=== PATIENT | male | born 1985 | race Caucasian/White ===

== ENCOUNTER 2016-06-30 16:13 | Observation (INO) | payer OTHER ==
[~2016-06-30] VITALS: Ht 180.3 cm; Wt 123.8 kg
--- NOTE | ~2016-06-30 | DS ---
PATIENT'S NAME: DEEP AMATO [facility] AGE: 31 Y [address] ROOM: [address] [place], [place] [address] LOCATION: GICU ADMIT DATE: 06/30/2016 Discharge Summary DISCHARGE DATE: 07/01/2016 FAMILY PHYSICIAN: Melinda Irving MD ATTENDING PHYSICIAN: Jaime Ozuna V PRINCIPAL DIAGNOSIS: Priapism. SECONDARY DIAGNOSES: 1. Acute encephalopathy secondary to medication. 2. Morbid obesity. 3. Depression. 4. Obstructive sleep apnea. 5. Hypercholesterolemia. HOSPITAL COURSE: A 31-year-old gentleman with a past medical history of depression and was started on trazodone for insomnia, started experiencing priapism for a prolonged period of time, and he presented to the emergency department. He drove from [place] to [facility], and on way, he took multiple tablets of Ativan of unknown dosages. On arrival to the hospital, he was very drowsy and altered mental status. His initial lab work as well as blood gases looked okay. Because of his combativeness and inability to maintain airway, it was contemplated to intubate him, but later his mental status improved dramatically overnight. He was admitted in the ICU for overnight observation. His priapism as well as pain resolved on the day of discharge. He was restarted on all of his home medications, and was advised not to take trazodone and seek medical attention immediately if he again get erections for more than 2 hours. DISCHARGE MEDICATIONS: Include, 1. Lipitor 10 mg p.o. every day. 2. Bupropion XL 300 mg p.o. every day. 3. Cyclobenzaprine 10 mg p.o. every 8 hours p.r.n. 4. Lunesta 2 mg p.o. every night at bedtime. 5. Ondansetron 8 mg p.o. every 8 hours as needed for nausea and vomiting. 6. Pantoprazole 40 mg p.o. every day. 7. Tramadol 50 mg p.o. every 6 hours p.r.n. for pain. DISCHARGE INSTRUCTIONS: Go to the emergency department if erection lasts for more than 4 hours. Activity as tolerated. Diet, regular diet. Hemodynamics as well as lab work on discharge were stable. PATIENT'S NAME: DEEP AMATO [facility] AGE: 31 Y [address] ROOM: [place] [address] LOCATION: [facility] ADMIT DATE: 06/30/2016 Discharge Summary DISCHARGE DATE: 07/01/2016 FAMILY PHYSICIAN: Melinda Irving MD ATTENDING PHYSICIAN: Jaime Ozuna MD NATIVIDAD/marbin /[id number] d: 07/02/16 0339 t: 07/03/16 1213, DISCHARGE SUMMARY
--- NOTE | ~2016-06-30 | ER ---
[facility] AGE[facility] 31 Y [address] ROOM: [place] [address] LOCATION: GICU ADMIT DATE: 06/30/2016 ER/Outpatient Report DISCHARGE DATE: 07/01/2016 FAMILY PHYSICIAN: Melinda Irving MD ATTENDING PHYSICIAN: Jaime Ozuna V TIME OF ARRIVAL: 1613 hours. TIME SEEN: 1613 hours. IDENTIFICATION: A 31-year-old male. CHIEF COMPLAINT: Priapism and overdose. 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 On arrival, he was combative and minimally responsive. According to his , to deal with the pain he had taken Flexeril 10 mg approximately 12 tablet, she is not sure, tramadol 50 mg an unknown amount, Ativan an unknown amount, and alcohol. He apparently had priapism yesterday and saw his primary care physician and his trazodone was discontinued. It got better but then again reoccurred, so he called and taken all these pain medications, but did not tell us that over the phone. Since that time, his priapism has relieved itself. He, however, has three or four lidocaine patches over his penis. He is not responsive to answer any questions. His history was obtained from his . PAST MEDICAL HISTORY: ALLERGIES: NO KNOWN DRUG ALLERGIES. CURRENT MEDICATIONS: 1. Ondansetron 8 mg p.r.n. 2. Pantoprazole 40 mg daily. 3. Eszopiclone which is Lunesta 2 mg at bedtime p.r.n. 4. Cyclobenzaprine 10 mg p.r.n. 5. Atorvastatin 10 mg. 6. Bupropion XL 150 mg. 7. Tramadol 50 mg. PATIENT'S NAME: [facility] AGE: 31 Y [address] ROOM: [place] [address] LOCATION: GICU ADMIT DATE: 06/30/2016 ER/Outpatient Report DISCHARGE DATE: 07/01/2016 FAMILY PHYSICIAN: Melinda Irving MD ATTENDING PHYSICIAN: Jaime Ozuna V 8. Ativan, unknown dose. MEDICAL PROBLEMS: Sleep apnea on CPAP, depression, migraine headaches, hyperlipidemia. PRIOR SURGERIES: Gastric sleeve in November, he has lost 100 pounds since that time according to his ; T and A; vocal cord nodules in that surgery. SOCIAL HISTORY: The patient lives in [place]. He is . 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 Health: Tobacco use, his said he does not smoke, but she did find cigarettes in his car the other day. Alcohol use, every night and more on the weekends. He did drink this morning, unknown quantity. Suicidal ideation none known. She states that he was not trying to harm himself, he was just trying to get rid of the pain, but I am not able to get an answer from him on that. REVIEW OF SYSTEMS: All systems reviewed per the , not per the patient, unable to obtain from the patient. Negative other than what is noted in the HPI. FAMILY HISTORY: No pertinent family history identified. PHYSICAL EXAMINATION: VITAL SIGNS: Weight 124.7 kg, blood pressure 138/58, pulse 100, respirations 12, temp 97.4, sats 98% on room air. GENERAL: A 31-year-old male who is initially somewhat combative, but will not open his eyes to command and will not answer questions. Initial [place] coma score from nv was eight. He did have incomprehensible sounds. He localized pain but did not open his eyes. HEENT: Head: Normocephalic, atraumatic. Ears: TMs translucent, both ears. Eyes: Pupils equal and reactive to light and accommodation. Extraocular movements intact. LUNGS: Clear to auscultation. No rhonchi, wheezes, or rales. HEART: Regular rate and rhythm. ABDOMEN: Protuberant. Bowel sounds present. Soft, nondistended, nontender. SKIN: [place], warm, and dry. NEUROLOGIC: The patient's [place] Coma Score is eight. He is moving all extremities, but he does not follow any commands and he moans but is not verbal. EXTREMITIES: No edema. : No evidence of priapism at that time. All of the lidocaine patch is removed from his penis and a Suggs catheter was placed. The patient for PATIENT'S NAME: DEEP AMATO [facility] AGE: 31 Y [address] ROOM: [address] [place], [place] [address] LOCATION: GICU ADMIT DATE: 06/30/2016 ER/Outpatient Report DISCHARGE DATE: 07/01/2016 FAMILY PHYSICIAN: Melinda Irving MD ATTENDING PHYSICIAN: aJime Ozuna V comfort had been placed by paramedics on 1 L of O2 per nasal cannula. Suggs catheter was placed and IV was initiated 1 L of normal saline was infused, a banana bag was ordered, and his labs were obtained. Poison Control was contacted. At this point, recommended supportive management and recommendations were faxed from Poison Control. LABORATORY DATA: EKG sinus tachycardia 100 beats per minute. No acute ST elevation or depression. QRS 94 millisecond, QTc corrected 427 millisecond, lactate elevated at 2.6. Cath UA negative. Hemoglobin 15.4, hematocrit 45.6, platelets 180, white count 8.8 with a normal differential. Urine drug screen negative. PH 7.36, procalcitonin less than 0.05. Sodium 146, potassium 3.7, chloride 109, CO2 of 25, BUN 8, creatinine 1.0. Blood sugar 78, repeat Accu- Chek 75. The patient was given an amp of D50 along with his banana bag. Alcohol 0.198. Acetaminophen less than 2. Salicylate less than 2.8. These were initially ordered, but the patient was combative, so we did cancel those ABGs and obtained venous lactate and a venous pH. Venous pH was 7.36, CO2 was 25, and lactate was 2.6. ABGs then were ordered by Dr. Ozuna as he was here in the emergency room. PH 7.40, pCO2 of 41, PO2 of 138, sats 99%. His end- tidal CO2 remained 42-48, they did increase to 48, but he would respond to a sternal rub and his kept reminding us that he does have sleep apnea. Sats always remained 99% or greater. At this time, the decision was made as he was maintaining his own airway to not intubate the patient, but if he change that all, intubation would occur and this discussion did happen with the both by myself and with Dr. Ozuna. IMPRESSION AND PLAN: 1. Overdose, polysubstance, unknown amount and definite time along with alcohol intake. It is greater than 1.5 hours and I would not use activated charcoal at this time as well as he is not responsive. 2. Depression and anxiety. 3. Priapism. No acute priapism at this time. 4. Obesity. 5. Obstructive sleep apnea. PLAN: Admission to ICU per Dr. Ozuna. The patient's arrival time was 1613 hours and 50 minutes of critical care was provided with this patient. REID SANCHEZ MD PATIENT'S NAME: DEEP AMATO [facility] AGE: 31 Y [address] ROOM: [place] [address] LOCATION: [facility] ADMIT DATE: 06/30/2016 ER/Outpatient Report DISCHARGE DATE: 07/01/2016 FAMILY PHYSICIAN: Melinda Irving MD ATTENDING PHYSICIAN: Jaime Ozuna V CAR/umml /[id number] d: 07/01/16 1356 t: 07/03/16 1424, OUTPATIENT REPORT
--- NOTE | ~2016-06-30 | HP ---
PAT[facility] NAME: [facility] AGE: 31 Y [address] ROOM: [place] [address] LOCATION: [facility] ADMIT DATE: 06/30/2016 History & Physical DISCHARGE DATE: FAMILY PHYSICIAN: Melinda Irving MD ATTENDING PHYSICIAN: KRISTIAN FITZPATRICK V DATE OF SERVICE: CHIEF COMPLAINT: Overdose. HISTORY OF PRESENT ILLNESS: This is a 31-year-old male. The history is provided by his . The patient had been having difficulties with priapism yesterday. He discussed this with his PMD and was taken off trazodone and put on Ativan, though the specifics of that prescription are unclear. This morning, the patient had intermittent priapism again and was advised to come to the ER. Before even coming to the ER, his priapism resolved, but his pain remained. En route to the ER, the patient took multiple medications for the pain, as per his . These included Ultram, Flexeril, and possibly some others. She is not sure if he took any of the Ativan. She brought a bag of his medicines, and I do not see any bottles of Ativan. There are bottles of eszopiclone, ondansetron, atorvastatin, bupropion, and tramadol in there. He also has been drinking, and upon arrival here, his blood alcohol is 0.198. Initially, in the ER, the patient was quite combative, but subsequently his mental status has deteriorated. At this point, he is quite obtunded, though seems to be maintaining his airway. He is only responding to the most noxious stimuli, but not really opening his eyes. REVIEW OF SYSTEMS: All systems have been reviewed with the and are negative aside from pertinent positives mentioned above. PAST MEDICAL HISTORY: 1. Depression. 2. Morbid obesity. 3. Status post gastric sleeve, with profound weight loss in the last 8 months; about 100 pounds. 4. Obstructive sleep apnea, on BiPAP. 5. Hypercholesterolemia. CURRENT MEDICATIONS: 1. Zofran. 2. Pantoprazole. PATIENT'S NAME: [facility] AGE: 31 Y [address] ROOM: [place] [address] LOCATION: [facility] ADMIT DATE: 06/30/2016 History & Physical DISCHARGE DATE: FAMILY PHYSICIAN: Melinda Irving MD ATTENDING PHYSICIAN: KRISTIAN FITZPATRICK V 3. Eszopiclone (Lunesta). 4. Cyclobenzaprine. 5. Atorvastatin. 6. Bupropion XL. 7. Tramadol. 8. Ativan. SOCIAL HISTORY: Significant for daily alcohol use. His reports approximately 2 to 3 large [employer]isted [employer] cans, more on weekends and when he is not on-call. She denies any drug use, but apparently she has been finding cigarettes in his car. FAMILY HISTORY: Reviewed and is noncontributory. PHYSICAL EXAMINATION: VITAL SIGNS: Blood pressure 120s over 60s, heart rate 109, saturating 97% on minimal amount of nasal cannula, afebrile. GENERAL APPEARANCE: A morbidly obese, young male. Obtunded. [place] Coma Scale is 7. EYES: Pupils are equal and reactive to light. LYMPHATIC: No cervical lymphadenopathy. ENDOCRINE: No thyromegaly. LUNGS: Clear to auscultation, with poor inspiratory effort. HEART: Rate is tachycardic and regular with no appreciable murmurs, gallops, or rubs. GASTROINTESTINAL: Abdomen is soft, nontender, and nondistended. GENITOURINARY: No costovertebral angle tenderness. VASCULAR: 2+ pedal pulses. MUSCULOSKELETAL: No muscle or joint abnormalities. SKIN: Warm and dry. PSYCHIATRIC: Cannot be conducted. LABORATORY DATA: Studies performed in the ER are significant for Accu-Chek of 72. Venous pH 7.36. Lactate is 2.6. Sodium 146. Remainder is unremarkable. Alcohol level is 0.198. Urinalysis is negative. Urine tox is negative. ASSESSMENT AND PLAN: This is a 31-year-old male who is admitted with: 1. Acute polysubstance overdose. At this point, we will check the patient's arterial blood gas as there has been a deterioration in his cognitive function. Based on the results of the ABG, we will consider intubation. If not, the patient will be admitted to the intensive care unit PATIENT'S NAME: DEEP AMATO [facility] AGE: 31 Y [address] ROOM: [address] [address] LOCATION: GICU ADMIT DATE: 06/30/2016 History & Physical DISCHARGE DATE: FAMILY PHYSICIAN: Melinda Irving MD ATTENDING PHYSICIAN: KRISTIAN FITZPATRICK V regardless. We will monitor his oxygenation, ventilation, as well as airway. We will have a low threshold for intubation. 2. Polysubstance ingestion. We will monitor his rhythm and electrolytes. At this point, it is probably too late for activated charcoal. 3. Depression and anxiety. We will hold off on his psychoactives. 4. Priapism. If this recurs, we will get a urology consultation. We will discontinue his trazodone. 5. Morbid obesity noted. 6. Obstructive sleep apnea. We will put the patient on CPAP. Time dedicated to the patient's encounter is 35 minutes. MD WELSHK/umml /[id number] D: [id number] T: [id number] HISTORY & PHYSICAL
[2016-06-30 16:34] LABS: BILIRUBIN URINE NEGATIVE (NEGATIVE); BLOOD URINE NEGATIVE /UL (NEGATIVE); GLUCOSE URINE NEGATIVE (NEGATIVE); KETONE URINE NEGATIVE (NEGATIVE); LEUKOCYTES URINE NEGATIVE /UL (NEGATIVE); NITRITE URINE NEGATIVE (NEGATIVE); PH URINE 6.5 (4.0-8.0); PROTEIN URINE NEGATIVE (NEGATIVE); SPEC GRAVITY URINE 1.005 (1.003-1.035); UROBILINOGEN URINE NORMAL (NORMAL)
[2016-06-30 16:34] LABS: BASOPHIL # 0.1 K/uL (0.0-0.2); BASOPHIL % 0.6 %; EOSINOPHIL # 0.2 K/uL (0.0-0.5); EOSINOPHIL % 1.9 %; HEMATOCRIT 45.6 % (37.0-53.0); HEMOGLOBIN 15.4 g/dL (12.0-17.0); IMMATURE GRANULOCYTE % 0.5 %; LYMPHOCYTE # 2.6 K/uL (0.8-4.0); LYMPHOCYTE % 29.6 %; MCH 29.9 pg (27.0-34.0); MCHC 33.8 gm/dL (32.0-36.5); MCV 88.5 fl (83.0-98.0); MONOCYTE # 0.6 K/uL (0.0-1.0); MONOCYTE % 6.3 %; MPV 9.2 fl (9.4-12.4); NEUTROPHIL # (ANC) 5.4 K/uL (1.4-9.0); NEUTROPHIL % 61.1 %; NRBC % 0 /100WBC (0-0.00); PLATELET COUNT 180 K/uL (150-450); RBC 5.15 M/uL (4.00-6.00); RDW-CV 13.9 % (11.9-14.6); WBC 8.8 K/uL (4.0-11.0)
[2016-06-30 16:35] LABS: COLOR URINE YELLOW (YELLOW); TURBIDITY URINE CLEAR (CLEAR)
[2016-06-30 16:51] LABS: AMPHETAMINE NEGATIVE (NEGATIVE); BARBITURATE NEGATIVE (NEGATIVE); COCAINE NEGATIVE (NEGATIVE); OPIATES NEGATIVE (NEGATIVE)
[2016-06-30 16:54] LABS: ALBUMIN 4.1 gm/dL (3.5-5.0); ALK PHOS 92 IU/L (33-138); ALT 40 IU/L (12-78); AST 33 IU/L (10-40); BLOOD UREA NITROGEN 8 mg/dL (6-24); CALCIUM 8.7 mg/dL (8.5-10.5); CHLORIDE 109 mMol/L (96-110); CO2 25 mMol/L (22-32); ESTIMATED GFR (MDRD EQUATION) > 60; POTASSIUM 3.7 mMol/L (3.7-5.1); TOTAL BILIRUBIN 0.4 mg/dL (0.0-1.5); TOTAL PROTEIN 8.6 g/dL (6.0-8.4)
[2016-06-30 16:56] LABS: ANION GAP 15.7 (10.0-19.0); SODIUM 146 mMol/L (135-145)
[2016-06-30 17:48] LABS: BICARBONATE 25.1 mmol/L (18.0-23.0); PCO2 41 mmHg (35-45); PO2 138 mmHg (80-90)
[2016-06-30] MEDS ORDERED: FLEXERIL10 MG PO (19:13)
[2016-06-30] MEDS ORDERED: WELLBUTRIN XL150 M1 PO (19:14)
[2016-06-30] MEDS ORDERED: PROTONIX40 MG PO (19:16)
[2016-06-30] MEDS ORDERED: LUNESTA2 MG PO (19:17)
[2016-06-30] MEDS ORDERED: LIPITOR10 MG PO (19:18)
[2016-06-30] MEDS ORDERED: ZOFRAN4 MG PO (19:21)
[2016-06-30] MEDS ORDERED: ULTRAM50 MG PO (19:23)
--- NOTE | 2016-07-01 05:16 | NUR ---
PATIENT IS A/O TIMES 3 COOPERATIVE MOVES ALL EXTREMITIES OUT OF BED TO RECLAINER/BATHROOM WITH ONE ASSIST,MUÑOZ CATHETER WAS D/C PATIENT VOIDED TIMES 2 VIA URINAL,CLEAR YELLOW U.O.P,STABLE HEMODYNAMICALLY.CLEAR LUNGS SOUND ON ROOM AIR [id number]=93%. FOLLOW UP:CONTINUE TO MONITOR PATIENT'S HEMODYNAMIC AND RESPIRATORY STATUS CLOSELY.
[2016-07-01 05:20] LABS: BASOPHIL # 0.1 K/uL (0.0-0.2); BASOPHIL % 0.5 %; EOSINOPHIL # 0.1 K/uL (0.0-0.5); EOSINOPHIL % 1.1 %; HEMATOCRIT 45.2 % (37.0-53.0); HEMOGLOBIN 15.1 g/dL (12.0-17.0); IMMATURE GRANULOCYTE % 0.2 %; LYMPHOCYTE % 21.6 %; MCH 29.9 pg (27.0-34.0); MCHC 33.4 gm/dL (32.0-36.5); MCV 89.5 fl (83.0-98.0); MONOCYTE # 0.4 K/uL (0.0-1.0); MONOCYTE % 4.8 %; MPV 9.2 fl (9.4-12.4); NEUTROPHIL # (ANC) 6.6 K/uL (1.4-9.0); NEUTROPHIL % 71.8 %; NRBC % 0 /100WBC (0-0.00); PLATELET COUNT 164 K/uL (150-450); RBC 5.05 M/uL (4.00-6.00); RDW-CV 14.1 % (11.9-14.6); WBC 9.2 K/uL (4.0-11.0)
[2016-07-01 05:34] LABS: ALBUMIN 3.7 gm/dL (3.5-5.0); ALK PHOS 83 IU/L (33-138); ALT 40 IU/L (12-78); ANION GAP 11.8 (10.0-19.0); AST 35 IU/L (10-40); BLOOD UREA NITROGEN 8 mg/dL (6-24); CALCIUM 8.4 mg/dL (8.5-10.5); CHLORIDE 109 mMol/L (96-110); CO2 27 mMol/L (22-32); CREATININE 0.9 mg/dL (0.6-1.3); ESTIMATED GFR (MDRD EQUATION) > 60; PHOSPHORUS 2.9 mg/dL (2.5-4.9); POTASSIUM 3.8 mMol/L (3.7-5.1); SODIUM 144 mMol/L (135-145); TOTAL PROTEIN 8.1 g/dL (6.0-8.4)
[2016-07-01 05:38] LABS: TOTAL BILIRUBIN 0.7 mg/dL (0.0-1.5)
--- NOTE | 2016-07-01 09:49 | NUR ---
Patient oriented x3, denies N/T or pain. Pupils equal and reactive, equal strength in all extremities. Ambulates without assistance. SR, ST with activity. SBP stable. Room air, lungs clear throughout, denies any difficulty breathing. Bowels active, voids without difficulty. Patient had d/c'd IV prior to first assessment. Refused AM medications and refused to utilize wheelchair for dismissal
== END 2016-07-01 09:52 | disposition disaster alternative care site (69) ==
LOC: GMED 16:13 → GICU 17:54
PROVIDERS: Family Medicine; ADMIT Internal Medicine
DX: N48.30 Priapism, unspecified (principal); T42.4X2A Poisoning by benzodiazepines, intentional self-harm, initial encounter; G93.40 Encephalopathy, unspecified; G47.33 Obstructive sleep apnea (adult) (pediatric); F32.9 Major depressive disorder, single episode, unspecified; E78.00 Pure hypercholesterolemia, unspecified; G43.909 Migraine, unspecified, not intractable, without status migrainosus; F41.9 Anxiety disorder, unspecified; F10.20 Alcohol dependence, uncomplicated; R41.82 Altered mental status, unspecified; E66.01 Morbid (severe) obesity due to excess calories; Z68.38 Body mass index [BMI] 38.0-38.9, adult; Z79.899 Other long term (current) drug therapy; Y92.89 Other specified places as the place of occurrence of the external cause; Z23 Encounter for immunization
CPT/HCPCS: C9113; G0009; G0378; G0480; J1650; J2310; J3411; J7030